=== PATIENT | male | born 1965 | race Hispanic/Latino ===

== ENCOUNTER → 2022-07-12 | Outpatient (CLI) | payer MEDICARE | END | disposition home or self-care (01) | LOC: RAH 13:27 | PROVIDERS: ATTEND Family Medicine | DX: N43.3 Hydrocele, unspecified (principal); N49.2 Inflammatory disorders of scrotum | CPT/HCPCS: 76870 ==

== ENCOUNTER 2023-02-21 07:36 | Day surgery (SDC) | payer OTHER, MEDICARE ==
[2023-02-15 13:18] LABS: BASOPHILS % (AUTO) 0.5 % (0.0-5.0); EOSINOPHILS % (AUTO) 0.6 % (0.0-8.0); HEMATOCRIT 48.5 % (42-54); LYMPHOCYTES % (AUTO) 25.1 % (21.0-51.0); MEAN CORPUSCULAR HEMOGLOBIN 29.7 pg (27.0-33.0); MEAN CORPUSCULAR HGB CONC 32.8 g/dL (32.0-36.0); MEAN CORPUSCULAR VOLUME 90.7 fL (79-99); MONOCYTES % (AUTO) 7.7 % (3.0-13.0); NEUTROPHILS % (AUTO) 65.8 % (40.0-77.0); PLATELET COUNT (AUTO) 370 K/uL (130-400); RED BLOOD CELL COUNT(AUTO) 5.35 MIL/uL (4.50-6.20); RED CELL DISTRIBUTION WIDTH 13.2 % (11.0-15.5); WHITE BLOOD COUNT (AUTO) 12.5 K/uL (4.8-10.8)
[2023-02-15 13:31] LABS: CREATININE 0.8 mg/dL (0.5-1.5); POTASSIUM 4.3 mmol/L (3.5-5.1)
[2023-02-15 13:33] LABS: INR 1.01 (0.85-1.15)
[2023-02-15 13:34] LABS: PARTIAL THROMBOPLASTIN TIME 27.3 SEC (26.3-35.5)
[2023-02-15 20:35] VITALS: BP 132/77
[2023-02-21] VITALS (18 sets, daily range): BP systolic 122–151; BP diastolic 58–84
[~2023-02-21] VITALS: Ht 161.3 cm; Wt 78.3 kg
[~2023-02-21 07:36] MED LIST: ASCO250T70 PO; ERGO500093 PO; FAMO20TA8 PO; FERR-82 PO; GABA600T10 PO; HYDR-3421 PO; LISI20TA24 PO; METH-812 PO
[2023-02-21] MEDS ORDERED: LACTATED RINGERS 1000ML 1,000 ML IV ONE (07:50)
[2023-02-21] MEDS: CEFAZOLIN SODIUM 2 GM VIAL ONE ×2 (07:58→11:47)
[2023-02-21] MEDS ORDERED: LIDOCAINE PF 100MG/5ML (2%) SYRINGE 5ML ONE (11:21)
[2023-02-21] MEDS ORDERED: PROPOFOL 10 MG/ML 20ML VIAL IV ONE (11:23)
[2023-02-21] MEDS ORDERED: MIDAZOLAM HCL 1 MG/ML 2ML VIAL ONE (11:23)
[2023-02-21] MEDS ORDERED: FENTANYL CITRATE PF 50 MCG/1 ML 2ML VIAL ONE ×2 (11:23→13:05)
[2023-02-21] MEDS ORDERED: BUPIVACAINE/PF 0.25% 30ML VIAL IJ ONE (11:53)
[2023-02-21] MEDS ORDERED: PHENYLEPHRINE HCL 10 MG/ML 1ML VIAL IV ONE (11:53)
[2023-02-21] MEDS ORDERED: KETOROLAC 30MG VIAL (30MG/ML) ONE (13:06)
[2023-02-21] MEDS ORDERED: KETOROLAC 15MG/ML VIAL (15MG/ML) ONE (14:38)
[2023-02-21] MEDS ORDERED: BACITRACIN 1 EACH PACKET TP ONE (16:03)
== END 2023-02-21 16:04 | disposition home or self-care (01) ==
LOC: DAH 07:36
PROVIDERS: ATTEND Urology
DX: N43.42 Spermatocele of epididymis, multiple (principal); Z20.822 Contact with and (suspected) exposure to COVID-19; N43.2 Other hydrocele; N50.89 Other specified disorders of the male genital organs; Z79.01 Long term (current) use of anticoagulants; Z79.899 Other long term (current) drug therapy; Z98.890 Other specified postprocedural states
CPT/HCPCS: 80048; 85025; 85610; 85730; 87426; 36415; 71045; 93005; 54840; 88304; A4663; J7030; J7120 ×2; A4606; J3010 ×2; J3490; J2001; J2250; J2704; J1885 ×2; J2370; J0690; A4215; A4223; A4222; A4221; A4600

== ENCOUNTER 2023-02-21 18:47 | Emergency (ER) | payer OTHER, MEDICARE ==
[~2023-02-21] VITALS: Ht 160 cm; Wt 77.1 kg
[2023-02-21 21:01] VITALS: BP 122/72
== END 2023-02-21 21:15 | disposition home or self-care (01) ==
LOC: EDH 18:47
DX: N99.89 Other postprocedural complications and disorders of genitourinary system (principal); I10 Essential (primary) hypertension; Z79.899 Other long term (current) drug therapy; Z98.890 Other specified postprocedural states

== ENCOUNTER → 2023-10-28 | Outpatient (CLI) | payer OTHER | END | disposition home or self-care (01) | LOC: RAH 10:42 | PROVIDERS: ATTEND Family Medicine | DX: J44.9 Chronic obstructive pulmonary disease, unspecified (principal) | CPT/HCPCS: 71046 ==